=== PATIENT | male | born 1950 | race Caucasian/White ===

== ENCOUNTER 2023-09-21 20:35 | Inpatient (IN) | payer MEDICARE ==
[~2023-09-21] VITALS: Ht 172.7 cm; Wt 110.5 kg
[2023-09-21] MEDS ORDERED: REMEDY ESSENTIAL ZINC PASTE 113 GM TOP PRN (20:45)
[2023-09-21 21:00] VITALS: BP 89/53; TEMP 97.6; O2SAT 99
[2023-09-21] MEDS ORDERED: METR-147 PO (21:06)
[2023-09-21] MEDS ORDERED: VANC750F IV (21:06)
[2023-09-21] MEDS ORDERED: METO50TA16 PO (21:06)
[2023-09-21] MEDS ORDERED: SPIR25TA6 PO (21:06)
[2023-09-21] MEDS ORDERED: FURO40TA5 PO (21:06)
[2023-09-21] MEDS ORDERED: APIX2.5T PO (21:06)
[2023-09-21] MEDS ORDERED: IVER3TAB2 PO (21:06)
[2023-09-21 22:06] VITALS: O2SAT 96
[2023-09-22 05:10] VITALS: BP 92/50; TEMP 97.6; O2SAT 96
[2023-09-22] MEDS: METRONIDAZOLE 500 MG TABLET PO SCH (05:28)
[2023-09-22] MEDS: SPIRONOLACTONE 25 MG TABLET PO SCH (09:24)
[2023-09-22] MEDS: FUROSEMIDE 40 MG TABLET PO SCH (09:24)
[2023-09-22] MEDS: METOPROLOL TARTRATE 50 MG TABLET PO SCH (09:26)
[2023-09-22 09:29] VITALS: BP 106/60; TEMP 98; O2SAT 97
[2023-09-22] MEDS: APIXABAN 2.5 MG TABLET PO ONE ×2 (12:16→21:04)
[2023-09-22 15:29] VITALS: BP 112/55; TEMP 98.2; O2SAT 96
[2023-09-22 22:17] VITALS: BP 95/53; TEMP 97.6; O2SAT 94
[2023-09-22 23:15] VITALS: O2SAT 95
[2023-09-23 06:47] VITALS: TEMP 97.8
[2023-09-23 08:18] VITALS: BP 105/61; TEMP 97.6; O2SAT 98
[2023-09-23] MEDS: APIXABAN 2.5 MG TABLET PO ONE ×2 (08:54→21:22)
[2023-09-23] MEDS: VANCOMYCIN HCL 1,500 MG in IV DEXTROSE 5% 500 ML IV SCH (10:58)
[2023-09-23] MEDS ORDERED: VANCOMYCIN HCL 1,500 MG in IV DEXTROSE 5% 500 ML IV SCH (11:00)
[2023-09-23] MEDS: MEDIHONEY= THERAHONEY 1.5 OZ TUBE TOP SCH (15:46)
[2023-09-23 19:30] VITALS: BP 88/45; TEMP 97.4; O2SAT 98
[2023-09-23 20:10] VITALS: BP 68/36; TEMP 97.6; O2SAT 98
[2023-09-23] MEDS: IV NORMAL SALINE 500 ML IV ONE (21:06)
[2023-09-24] VITALS (14 sets, daily range): BP systolic 78–110; BP diastolic 47–78; TEMP 97.3–98.3; O2SAT 95–99
[2023-09-24] MEDS: IV NORMAL SALINE 500 ML IV ONE (01:05)
[2023-09-24 06:58] LABS: BASOPHILS # (AUTO) 0.1 K/UL (0.0-0.2); BASOPHILS % (AUTO) 0.9 % (0.0-2.0); EOSINOPHILS # (AUTO) 0.9 K/uL (0.0-0.7); EOSINOPHILS % (AUTO) 12.3 % (0.0-7.0); HEMATOCRIT 27.8 % (36.7-47.1); HEMOGLOBIN 9.6 g/dL (12.5-16.3); LYMPHOCYTES # (AUTO) 2.1 K/uL (0.8-4.8); MEAN CORPUSCULAR HEMOGLOBIN 29.7 uug (23.8-33.4); MEAN CORPUSCULAR HGB CONC 35 g/dL (32.5-36.3); MEAN CORPUSCULAR VOLUME 85.8 fL (73.0-96.2); MONOCYTES # (AUTO) 0.6 K/uL (0.1-1.30); MONOCYTES % (AUTO) 7.5 % (0.0-11.0); NEUTROPHILS # (AUTO) 3.9 K/uL (1.8-8.9); NEUTROPHILS % (AUTO) 51.3 % (38.5-71.5); PLATELET COUNT (AUTO) 139 K/uL (152-348); RED BLOOD CELL COUNT(AUTO) 3.24 MIL/uL (4.06-5.63); WHITE BLOOD COUNT (AUTO) 7.6 K/uL (3.6-10.2)
[2023-09-24 07:05] LABS: CALCIUM 7.2 mg/dL (8.5-10.1); CARBON DIOXIDE 30 mmol/L (21-32); CHLORIDE 102 mmol/L (98-107); GLUCOSE 100 mg/dL (74-106); POTASSIUM 3.5 mmol/L (3.5-5.1); SODIUM SERUM 137 mmol/L (136-145); UREA NITROGEN, BLOOD 11 mg/dL (7-18)
[2023-09-24 07:12] LABS: DIFFERENTIAL COMMENT 1
[2023-09-24] MEDS: APIXABAN 2.5 MG TABLET PO ONE (08:13)
[2023-09-24] MEDS ORDERED: NOREPINEPHRINE BITARTRATE 8 MG in IV NORMAL SALINE 242 ML IV PRN ×2 (08:30→08:45)
[2023-09-24] MEDS ORDERED: APIXABAN 2.5 MG TABLET PO SCH ×2 (21:00)
[2023-09-27] MEDS ORDERED: IVERMECTIN 3 MG TABLET PO ONE ×2 (09:00)
== END 2023-09-24 02:59 | disposition short-term general hospital (02) | DRG 872 ==
LOC: CCU 09-24 03:15 → UNDODISIN 09-24 10:00
PROVIDERS: ADMIT Physical Medicine & Rehabilitation Pain Medicine; ATTEND Internal Medicine
DX: A41.02 Sepsis due to Methicillin resistant Staphylococcus aureus (principal); E44.0 Moderate protein-calorie malnutrition; L03.311 Cellulitis of abdominal wall; J90 Pleural effusion, not elsewhere classified; R53.1 Weakness; D64.9 Anemia, unspecified; E88.09 Other disorders of plasma-protein metabolism, not elsewhere classified; I48.91 Unspecified atrial fibrillation; I50.9 Heart failure, unspecified; I87.8 Other specified disorders of veins; R62.7 Adult failure to thrive; Z79.01 Long term (current) use of anticoagulants; B95.62 Methicillin resistant Staphylococcus aureus infection as the cause of diseases classified elsewhere; B86 Scabies; K62.89 Other specified diseases of anus and rectum; S71.001A Unspecified open wound, right hip, initial encounter; X58.XXXA Exposure to other specified factors, initial encounter; Y93.9 Activity, unspecified; Y92.89 Other specified places as the place of occurrence of the external cause
CPT/HCPCS: 36415; 85025; A4606; A6209; A6213; J3371; J3490; J7040; J7060